=== PATIENT | female | born 1955 | race Caucasian/White ===

== ENCOUNTER → 2016-04-12 | Outpatient (CLI) | payer BC ==
[~2016-04-12] MED LIST: LEVO125T4 PO
--- NOTE | 2016-05-09 13:31 | EDITING REQUIRED CODING QUERY ---
CQSUPPORTING DIAGNOSIS NEEDED A supporting diagnosis is required for the test/procedure performed on this patient in order for us to be reimbursed by the patient's insurance. Please provide a supporting diagnosis for the following test/procedure listed below next to the test name along with your signature. *If there is no additional diagnosis for this patient that would support the following test/procedure please document that below next to the test/procedure. Test(s)/Procedure(s) that require a supporting diagnosis: DOS 04/12/16 [employer] D[employer] STUDY Provider Signature: Date: Thank you Victoria Boyce [facility] Once completed, please kindly fax back to [phone] For questions please call [phone]
--- NOTE | 2016-05-09 13:43 | CODING QUERY MEDICAL NECESSITY ---
CQSUPPORTING DIAGNOSIS NEEDED A supporting diagnosis is required for the test/procedure performed on this patient in order for us to be reimbursed by the patient's insurance. Please provide a supporting diagnosis for the following test/procedure listed below next to the test name along with your signature. *If there is no additional diagnosis for this patient that would support the following test/procedure please document that below next to the test/procedure. Test(s)/Procedure(s) that require a supporting diagnosis: DOS 04/12/16 B[employer] DENSITY STUDY Provider Signature: Date: Thank you Victoria Boyce [facility] Information [facility] Once completed, please kindly fax back to [phone] For questions please call [phone]
== END | disposition home or self-care (01) ==
LOC: C.MAMM 09:10
PROVIDERS: ATTEND Internal Medicine Rheumatology
DX: M81.0 Age-related osteoporosis without current pathological fracture (principal); M85.80 Other specified disorders of bone density and structure, unspecified site

== ENCOUNTER → 2016-10-23 | Outpatient (CLI) | payer BC ==
[2016-10-23 12:15] LABS: BASO % 0.3 %; BASO ABS # 0.01 K/uL (0-0.2); COMPLETE YES; EOS % 3.4 %; HEMATOCRIT 41.5 % (37-47); LYMPH % 41.4 %; LYMPH ABS # 1.45 K/uL (1.2-3.4); MEAN CELL VOLUME 94.1 fL (80-100); MEAN CORPUSCULAR HEMOGLOBIN 31.3 pg (25-34); MEAN CORPUSCULAR HGB CONC 33.3 g/dl (32-36); MEAN PLATELET VOLUME 9.8 fL (7.4-10.4); MONO % 8.3 %; NEUT % 46.6 %; PLATELET COUNT 329 K/uL (130-400); RED BLOOD COUNT 4.41 M/uL (4.2-5.4)
[2016-10-23 12:45] LABS: ALT/SGPT 34 U/L (12-78); AST/SGOT 18 U/L (15-37); BLOOD UREA NITROGEN 11 mg/dl (7-18); BUN/CREATININE RATIO 14.1 (10-20); CALCIUM 8.9 mg/dl (8.5-10.1); CARBON DIOXIDE 29 mmol/L (21-32); CHLORIDE 104 mmol/L (98-107); CREATININE 0.79 mg/dl (0.60-1.20); GLUCOSE 91 mg/dl (70-99); POTASSIUM 4.2 mmol/L (3.5-5.1); SODIUM 137 mmol/L (136-145); TRIGLYCERIDES 69 mg/dl (0-150); VERY LOW DENSITY LIPOPROT CALC 14 mg/dl
[2016-10-23 12:58] LABS: ALB/GLOB RATIO 1.2 (0.9-2); ALKALINE PHOSPHATASE 59 U/L (45-117); CHOLESTEROL 199 mg/dl (0-200); CHOLESTEROL/HDL RATIO 2.6; HDL CHOLESTEROL 77 mg/dl; LDL CHOLESTEROL CALCULATED 108 mg/dl
== END | disposition home or self-care (01) ==
LOC: C.LABPBG 08:06
PROVIDERS: ATTEND Internal Medicine Rheumatology
DX: Z00.00 Encounter for general adult medical examination without abnormal findings (principal); E03.9 Hypothyroidism, unspecified; Z11.59 Encounter for screening for other viral diseases; E55.9 Vitamin D deficiency, unspecified; M21.70 Unequal limb length (acquired), unspecified site; M85.80 Other specified disorders of bone density and structure, unspecified site

== ENCOUNTER → 2017-03-04 | Outpatient (CLI) | payer BC ==
[~2017-03-04] MED LIST changes: -LEVO125T4 PO; +LEVO125T5 PO
== END | disposition home or self-care (01) ==
LOC: C.PAPS 09:54
PROVIDERS: ATTEND Family Medicine
DX: Z01.419 Encounter for gynecological examination (general) (routine) without abnormal findings (principal)